=== PATIENT | female | born 1930 | race Asian ===

== ENCOUNTER 2018-02-11 13:34 | Emergency (ER) | payer MEDICARE, BC ==
--- NOTE | 2018-02-11 16:03 | RAD ---
INDICATION: Altered mental status COMPARISON: None. TECHNIQUE: Contiguous axial sections of the brain were obtained from the skull base to the vertex without contrast. FINDINGS: The ventricles, cisterns and sulci mild symmetric involutional changes. There is ayqy-lz-[id number] periventricular and subcortical white matter hypoattenuation, most consistent with chronic microvascular disease. Otherwise the gonzales-white matter differentiation is adequately maintained and there is no sulcal effacement. No significant focal abnormality or mass effect is present. There is no evidence for intracranial hemorrhage. No significant focal osseous abnormality is present. The visualized portion of the paranasal sinuses appear clear. The mastoid air cells are well aerated bilaterally. IMPRESSION: Appearance of chronic microvascular disease without CT apparent acute intracranial abnormality.
--- NOTE | 2018-02-11 16:09 | RAD ---
INDICATION: Altered mental status and hypoxia COMPARISON: None TECHNIQUE: PA and lateral views of the chest were obtained. FINDINGS: The heart and mediastinum are normal in size and contour. There is coarse calcification overlying the arch of the aorta. The lungs are grossly clear. There is no evidence of large pleural effusion. Visualized bones are normal for the patient's age. There is no radiographic evidence of free air beneath the diaphragm IMPRESSION: No radiographic evidence of acute cardiopulmonary disease.
[2018-02-11 16:26] LABS: ABS Basophils 0 10^3/ul (0-0.2); ABS Eosinophils 0.1 10^3/ul (0-0.6); ABS Lymphocytes 1.5 10^3/ul (1.0-4.8); ABS Monocytes 0.5 10^3/ul (0-0.8); ABS Neutrophils 5.4 10^3/ul (1.5-7.7); ABS Nucleated RBC 0 10^3/ul; Eosinophil % 1.3 % (0-6); Hematocrit 39 % (35-47); Hemoglobin 13.2 g/dl (12.0-16.0); Mean Corpuscular HGB Conc 34 g/dl (31-36); Mean Corpuscular Hemoglobin 32 pg (27-31); Mean Corpuscular Volume 94 fL (80-97); Mean Platelet Volume 9 um3 (7.4-10.4); Nucleated Red Blood Cells % 0; Platelet Count 238 10^3/ul (150-450); Red Blood Count 4.12 10^6/ul (4.0-5.4); Red Cell Distribution Width 13 % (10.5-15); White Blood Count 7.6 10^3/ul (3.5-10.8)
[2018-02-11 16:39] LABS: INR 0.87 (0.77-1.02)
[2018-02-11 17:44] LABS: Urine Appearance Clear; Urine Blood Negative (Negative); Urine Color Yellow; Urine Ketones Negative (Negative); Urine Protein Negative (Negative); Urine Specific Gravity 1.013 (1.010-1.030); Urine Urobilinogen Negative (Negative)
--- NOTE | 2018-02-11 18:49 | ED ---
Leroy Isaacs Tiffany, scribed for Freedom Dominique MD on 02/11/18 at 1514 . Complex/Multi-Sys Presentation - HPI Summary HPI Summary: The patient is an 87 year old F referred from Urgent Care [facility] accompanied by son and iikmfiij-qk-okk c/o sun downing episode last night. Symptoms aggravated by nothing. Symptoms alleviated by nothing. Reports lack of sleep. Denies pain, bloody stool. Per son and zofkdafo-ev-iql, patient has been having livid nightmares since her 2 weeks ago. She realizes that these dreams are fake. Began Amoxicillin yesterday afternoon s/p teeth extraction. Woke up last night at 03:00 with nightmare of people wanting to hurt her. Has had recent symptoms of URI. Has hx of dementia. Son and daughter- in-law are concerned that infection is making the dementia worse. - History Of Current Complaint Chief Complaint: EDGeneral Time Seen by Provider: 02/11/18 14:52 Hx Obtained From: Patient, Family/Financial Aid Administrator - Son and hkxlxwog-am-pyq Onset/Duration: Lasting Weeks - nightmares lasting 2 weeks, recent symptoms of URI, Still Present Aggravating Factor(s): Nothing Alleviating Factor(s): Nothing Associated Signs And Symptoms: Positive: Other - lack of sleep, recent symptoms of URI; NEGATIVE: pain, bloody stool - Allergies/Home Medications Allergies/Adverse Reactions: Allergies Allergy/AdvReac Type Severity Reaction Status Date / Time No Known Allergies Allergy Verified 02/11/18 13:40 PMH/Surg Hx/FS Hx/Imm Hx Previously Healthy: No Endocrine/Hematology History: Reports: Hx Diabetes - Type II Cardiovascular History: Reports: Hx Hypertension Neurological History: Reports: Hx Dementia, Other Neuro Impairments/Disorders - Alzheimer's - Surgical History Surgery Procedure, Year, and Place: None Infectious Disease History: No Infectious Disease History: Denies: Traveled Outside the [place] in Last 30 Days - Family History Known Family History: Positive: Other - Denies knowledge of relevant family history - Social History Lives: With Family Alcohol Use: None Hx Substance Use: No Substance Use Type: Reports: None Hx Tobacco Use: No Smoking Status (MU): Never Smoked Tobacco Review of Systems Positive: Other - Recent URI symptoms Gastrointestinal: Negative - Bloody stools Musculoskeletal: Negative - Pain Positive: Other - Sundowning episodes, livid nightmares for the past 2 weeks, lack of sleep All Other Systems Reviewed And Are Negative: Yes Physical Exam - Summary Physical Exam Summary: General: well-appearing, no pain distress Skin: warm, color reflects adequate perfusion, dry Head: normal Eyes: EOMI, JOSS ENT: normal Neck: supple, nontender Respiratory: CTA, breath sounds present Cardiovascular: RRR Abdomen: soft, nontender Bowel: present Musculoskeletal: normal, strength/ROM intact Neurological: normal, sensory/motor intact, A&O x3 Psychological: affect/mood appropriate Triage Information Reviewed: Yes Vital Signs On Initial Exam: Initial Vitals Temp Pulse Resp BP Pulse Ox 97.3 F 70 14 146/58 95 02/11/18 13:40 02/11/18 13:40 02/11/18 13:40 02/11/18 13:40 02/11/18 13:40 Vital Signs Reviewed: Yes Diagnostics - Vital Signs Vital Signs Temp Pulse Resp BP Pulse Ox 02/11/18 15:00 69 16 142/60 91 02/11/18 14:37 72 15 154/70 93 02/11/18 14:36 75 0 97 02/11/18 13:40 97.3 F 70 14 146/58 95 - Laboratory Lab Results: Lab Results 02/11/18 02/11/18 02/11/18 Range/Units 16:11 16:11 16:11 WBC (3.5-10.8) 10^3/ul RBC (4.0-5.4) 10^6/ul Hgb (12.0-16.0) g/dl Hct (35-47) % MCV (80-97) fL MCH (27-31) pg MCHC (31-36) g/dl RDW (10.5-15) % Plt Count (150-450) 10^3/ul MPV (7.4-10.4) um3 Neut % (Auto) (38-83) % Lymph % (Auto) (25-47) % [place] % (Auto) (0-7) % Eos % (Auto) (0-6) % Baso % (Auto) (0-2) % Absolute Neuts (auto) (1.5-7.7) 10^3/ul Absolute Lymphs (auto) (1.0-4.8) 10^3/ul Absolute Monos (auto) (0-0.8) 10^3/ul Absolute Eos (auto) (0-0.6) 10^3/ul Absolute Basos (auto) (0-0.2) 10^3/ul Absolute Nucleated RBC 10^3/ul Nucleated RBC % INR (Anticoag Therapy) 0.87 (0.77-1.02) APTT 38.1 H (26.0-36.3) seconds D-Dimer, Quantitative < 200 (Less Than 230) ng/mL Sodium 134 (133-145) mmol/L Potassium 4.2 (3.5-5.0) mmol/L Chloride 95 L (101-111) mmol/L Carbon Dioxide 31 (22-32) mmol/L Anion Gap 8 (2-11) mmol/L BUN 28 H (6-24) mg/dL Creatinine 0.85 (0.51-0.95) mg/dL Est GFR ( Amer) 81.0 (>60) Est GFR (Non-Af Amer) 63.0 (>60) BUN/Creatinine Ratio 32.9 H (8-20) Glucose 112 H (70-100) mg/dL Lactic Acid (0.5-2.0) mmol/L Calcium 9.9 (8.6-10.3) mg/dL Magnesium 2.1 (1.9-2.7) mg/dL Total Bilirubin 0.30 (0.2-1.0) mg/dL AST 25 (13-39) U/L ALT 12 (7-52) U/L Alkaline Phosphatase 52 (34-104) U/L Ammonia 32 (16-53) mol/L Total Creatine Kinase 94 (10-223) U/L CK-MB (CK-2) 4.1 (0.6-6.3) ng/mL Troponin I 0.01 (<0.04) ng/mL C-Reactive Protein 2.72 (< 5.00) mg/L B-Natriuretic Peptide 58 ( - 100) pg/mL Total Protein 7.2 (6.4-8.9) g/dL Albumin 3.9 (3.2-5.2) g/dL Globulin 3.3 (2-4) g/dL Albumin/Globulin Ratio 1.2 (1-3) Lipase 78 (11.0-82.0) U/L TSH 2.28 (0.34-5.60) mcIU/mL Urine Color Urine Appearance Urine pH (5-9) Ur Specific [place] (1.010-1.030) Urine Protein (Negative) Urine Ketones (Negative) Urine Blood (Negative) Urine Nitrate (Negative) Urine Bilirubin (Negative) Urine Urobilinogen (Negative) Ur Leukocyte Esterase (Negative) Urine Glucose (Negative) Urine Ascorbic Acid (Negative) Salicylates < 2.50 (<30) mg/dL Urine Opiates Screen (None Detect) Acetaminophen < 15 mcg/mL Ur Barbiturates Screen (None Detect) Ur Phencyclidine Scrn (None Detect) Ur Amphetamines Screen (None Detect) U Benzodiazepines Scrn (None Detect) Urine Cocaine Screen (None Detect) U Cannabinoids Screen (None Detect) Serum Alcohol < 10 (<10) mg/dL 02/11/18 02/11/18 02/11/18 Range/Units 16:11 16:11 17:32 WBC 7.6 (3.5-10.8) 10^3/ul RBC 4.12 (4.0-5.4) 10^6/ul Hgb 13.2 (12.0-16.0) g/dl Hct 39 (35-47) % MCV 94 (80-97) fL MCH 32 H (27-31) pg MCHC 34 (31-36) g/dl RDW 13 (10.5-15) % Plt Count 238 (150-450) 10^3/ul MPV 9 (7.4-10.4) um3 Neut % (Auto) 71.4 (38-83) % Lymph % (Auto) 20.0 L (25-47) % Def[place] % (Auto) 6.9 (0-7) % Eos % (Auto) 1.3 (0-6) % Baso % (Auto) 0.4 (0-2) % Absolute Neuts (auto) 5.4 (1.5-7.7) 10^3/ul Absolute Lymphs (auto) 1.5 (1.0-4.8) 10^3/ul Absolute Monos (auto) 0.5 (0-0.8) 10^3/ul Absolute Eos (auto) 0.1 (0-0.6) 10^3/ul Absolute Basos (auto) 0 (0-0.2) 10^3/ul Absolute Nucleated RBC 0 10^3/ul Nucleated RBC % 0 INR (Anticoag Therapy) (0.77-1.02) APTT (26.0-36.3) seconds D-Dimer, Quantitative (Less Than 230) ng/mL Sodium (133-145) mmol/L Potassium (3.5-5.0) mmol/L Chloride (101-111) mmol/L Carbon Dioxide (22-32) mmol/L Anion Gap (2-11) mmol/L BUN (6-24) mg/dL Creatinine (0.51-0.95) mg/dL Est GFR ( Amer) (>60) Est GFR (Non-Af Amer) (>60) BUN/Creatinine Ratio (8-20) Glucose (70-100) mg/dL Lactic Acid 1.1 (0.5-2.0) mmol/L Calcium (8.6-10.3) mg/dL Magnesium (1.9-2.7) mg/dL Total Bilirubin (0.2-1.0) mg/dL AST (13-39) U/L ALT (7-52) U/L Alkaline Phosphatase (34-104) U/L Ammonia (16-53) mol/L Total Creatine Kinase (10-223) U/L CK-MB (CK-2) (0.6-6.3) ng/mL Troponin I (<0.04) ng/mL C-Reactive Protein (< 5.00) mg/L B-Natriuretic Peptide ( - 100) pg/mL Total Protein (6.4-8.9) g/dL Albumin (3.2-5.2) g/dL Globulin (2-4) g/dL Albumin/Globulin Ratio (1-3) Lipase (11.0-82.0) U/L TSH (0.34-5.60) mcIU/mL Urine Color Urine Appearance Urine pH (5-9) Ur Specific [place] (1.010-1.030) Urine Protein (Negative) Urine Ketones (Negative) Urine Blood (Negative) Urine Nitrate (Negative) Urine Bilirubin (Negative) Urine Urobilinogen (Negative) Ur Leukocyte Esterase (Negative) Urine Glucose (Negative) Urine Ascorbic Acid (Negative) Salicylates (<30) mg/dL Urine Opiates Screen None detected (None Detect) Acetaminophen mcg/mL Ur Barbiturates Screen None detected (None Detect) Ur Phencyclidine Scrn None detected (None Detect) Ur Amphetamines Screen None detected (None Detect) U Benzodiazepines Scrn None detected (None Detect) Urine Cocaine Screen None detected (None Detect) U Cannabinoids Screen None detected (None Detect) Serum Alcohol (<10) mg/dL 02/11/18 Range/Units 17:32 WBC (3.5-10.8) 10^3/ul RBC (4.0-5.4) 10^6/ul Hgb (12.0-16.0) g/dl Hct (35-47) % MCV (80-97) fL MCH (27-31) pg MCHC (31-36) g/dl RDW (10.5-15) % Plt Count (150-450) 10^3/ul MPV (7.4-10.4) um3 Neut % (Auto) (38-83) % Lymph % (Auto) (25-47) % [place] % (Auto) (0-7) % Eos % (Auto) (0-6) % Baso % (Auto) (0-2) % Absolute Neuts (auto) (1.5-7.7) 10^3/ul Absolute Lymphs (auto) (1.0-4.8) 10^3/ul Absolute Monos (auto) (0-0.8) 10^3/ul Absolute Eos (auto) (0-0.6) 10^3/ul Absolute Basos (auto) (0-0.2) 10^3/ul Absolute Nucleated RBC 10^3/ul Nucleated RBC % INR (Anticoag Therapy) (0.77-1.02) APTT (26.0-36.3) seconds D-Dimer, Quantitative (Less Than 230) ng/mL Sodium (133-145) mmol/L Potassium (3.5-5.0) mmol/L Chloride (101-111) mmol/L Carbon Dioxide (22-32) mmol/L Anion Gap (2-11) mmol/L BUN (6-24) mg/dL Creatinine (0.51-0.95) mg/dL Est GFR ( Amer) (>60) Est GFR (Non-Af Amer) (>60) BUN/Creatinine Ratio (8-20) Glucose (70-100) mg/dL Lactic Acid (0.5-2.0) mmol/L Calcium (8.6-10.3) mg/dL Magnesium (1.9-2.7) mg/dL Total Bilirubin (0.2-1.0) mg/dL AST (13-39) U/L ALT (7-52) U/L Alkaline Phosphatase (34-104) U/L Ammonia (16-53) mol/L Total Creatine Kinase (10-223) U/L CK-MB (CK-2) (0.6-6.3) ng/mL Troponin I (<0.04) ng/mL C-Reactive Protein (< 5.00) mg/L B-Natriuretic Peptide ( - 100) pg/mL Total Protein (6.4-8.9) g/dL Albumin (3.2-5.2) g/dL Globulin (2-4) g/dL Albumin/Globulin Ratio (1-3) Lipase (11.0-82.0) U/L TSH (0.34-5.60) mcIU/mL Urine Color Yellow Urine Appearance Clear Urine pH 7.0 (5-9) Ur Specific [place] 1.013 (1.010-1.030) Urine Protein Negative (Negative) Urine Ketones Negative (Negative) Urine Blood Negative (Negative) Urine Nitrate Negative (Negative) Urine Bilirubin Negative (Negative) Urine Urobilinogen Negative (Negative) Ur Leukocyte Esterase Negative (Negative) Urine Glucose Negative (Negative) Urine Ascorbic Acid * A (Negative) Salicylates (<30) mg/dL Urine Opiates Screen (None Detect) Acetaminophen mcg/mL Ur Barbiturates Screen (None Detect) Ur Phencyclidine Scrn (None Detect) Ur Amphetamines Screen (None Detect) U Benzodiazepines Scrn (None Detect) Urine Cocaine Screen (None Detect) U Cannabinoids Screen (None Detect) Serum Alcohol (<10) mg/dL Result Diagrams: 02/11/18 16:11 02/11/18 16:11 Lab Statement: Any lab studies that have been ordered have been reviewed, and results considered in the medical decision making process. - Radiology CXR Radiology Interpretation Completed By: Radiologist - No radiographic evidence of acute cardiopulmonary disease. ED physician has reviewed this report. - CT Brain CT Interpretation Completed By: Radiologist - Appearance of chronic microvascular disease without CT apparent acute intracranial abnormality. ED physician has reviewed this report. Re-Evaluation - Re-Evaluation First Eval Re-Evaluation Time: 18:01 Change: Improved Comment: Discussed discharge plan with patient and family. They are agreeable to discharge. Complex Multi-Symp Course/Dx Course Of Treatment: BP noted and advised to follow up with PCP. Medications reviewed. O2 LEVEL VARIED FROM 83% TO 98% ON ROOM AIR WHICH MAKE TRUE HYPOXIA UNLIKELY. HALLUCINATIONS INTERMITTENT IN ED. WHEN PATIENT PLACED ON O2, THE HALLUCINATIONS CONTINUED. DISCUSSED WITH DR CASANOVA WHO OFFERED ADMISSION. THE PATIENT AND FAMILY DECLINED ADMISSION; THEY WILL F/U WITH PMD. THEY MAY TRY BENADRYL AT PM TO HELP WITH SLEEP. RETURN IF WORSE. - Diagnoses Provider Diagnoses: Hallucinations Discharge - Discharge Plan Condition: Stable Disposition: HOME Patient Education Materials: Hallucinations (ED) Referrals: [facility]ICIAN REFERRAL [Outside] Additional Instructions: FOLLOW UP WITH YOUR DOCTOR. RETURN TO THE EMERGENCY DEPARTMENT FOR ANY WORSENING OF YOUR CONDITION OR QUESTIONS OR CONCERNS. The documentation as recorded by the Leroy early Tiffany accurately reflects the service I personally performed and the decisions made by me, Freedom Dominique MD.
[2018-02-11 19:12] VITALS: BP 126/99
== END 2018-02-11 19:10 | disposition home or self-care (01) ==
LOC: ED 13:34
DX: R44.3 Hallucinations, unspecified (principal); R41.82 Altered mental status, unspecified; F05 Delirium due to known physiological condition; E11.9 Type 2 diabetes mellitus without complications; I10 Essential (primary) hypertension; G30.9 Alzheimer's disease, unspecified; F02.80 Dementia in other diseases classified elsewhere, unspecified severity, without behavioral disturbance, psychotic disturbance, mood disturbance, and anxiety
CPT/HCPCS: 36415; 70450; 71046; 80053; 80171; 80307; 80320; 80329; 81003; 82140; 82550; 82553; 83605; 83690; 83735; 83880; 84443; 84484; 85025; 85379; 85610; 85730; 86140; 99283; G0480

== ENCOUNTER 2018-03-07 09:34 | Emergency (ER) | payer MEDICARE, BC ==
--- NOTE | 2018-03-07 10:48 | RAD ---
INDICATION: Altered mental status. COMPARISON: Comparison is made with a prior chest x-ray study from February 11, 2018. TECHNIQUE: A portable view of the chest was obtained. FINDINGS: Cardiac and mediastinal contours appear to be within normal limits. The lungs are clear. No pleural effusion is seen. IMPRESSION: NO EVIDENCE FOR ACUTE DISEASE.
[2018-03-07 11:03] LABS: ABS Basophils 0 10^3/ul (0-0.2); ABS Eosinophils 0.1 10^3/ul (0-0.6); ABS Lymphocytes 1.4 10^3/ul (1.0-4.8); ABS Monocytes 0.4 10^3/ul (0-0.8); ABS Neutrophils 4.6 10^3/ul (1.5-7.7); ABS Nucleated RBC 0 10^3/ul; Hematocrit 39 % (35-47); Hemoglobin 13.2 g/dl (12.0-16.0); Mean Corpuscular HGB Conc 34 g/dl (31-36); Mean Corpuscular Hemoglobin 32 pg (27-31); Mean Corpuscular Volume 95 fL (80-97); Mean Platelet Volume 8.5 um3 (7.4-10.4); Nucleated Red Blood Cells % 0; Platelet Count 194 10^3/ul (150-450); Red Blood Count 4.16 10^6/ul (4.0-5.4); Red Cell Distribution Width 13 % (10.5-15); White Blood Count 6.6 10^3/ul (3.5-10.8)
--- NOTE | 2018-03-07 11:23 | RAD ---
HISTORY: Altered mental status COMPARISONS: February 11, 2013 TECHNIQUE: Multiple contiguous axial CT scans were obtained of the head without intravenous contrast. FINDINGS: HEMORRHAGE/INFARCT: There is no hemorrhage or acute infarct. MASSES/SHIFT: There is no mass or shift. EXTRA-AXIAL SPACES: There are no extra-axial fluid collections. SULCI AND VENTRICLES: The sulci and ventricles are normal in size and position for the patient's stated age. CEREBRUM: There is hypoattenuation of the periventricular and subcortical white matter. BRAINSTEM: There are no focal parenchymal abnormalities. CEREBELLUM: There are no focal parenchymal abnormalities. VESSELS: There is calcification of the cavernous segments of the internal carotid arteries bilaterally. PARANASAL SINUSES: The paranasal sinuses are clear. ORBITS: The orbits are unremarkable. BONES AND SOFT TISSUE: No bone or soft tissue abnormalities are noted. OTHER: None IMPRESSION: NO ACUTE INTRACRANIAL PATHOLOGY. CHRONIC SMALL VESSEL ISCHEMIC CHANGE.
[2018-03-07 11:30] LABS: EGFR Non-African American 55.4 (>60)
[2018-03-07 11:43] LABS: Urine Appearance Clear; Urine Blood Negative (Negative); Urine Color Yellow; Urine Ketones Negative (Negative); Urine Protein Negative (Negative); Urine Specific Gravity 1.013 (1.010-1.030); Urine Urobilinogen Negative (Negative)
[2018-03-07 12:54] VITALS: BP 140/65
--- NOTE | 2018-03-09 10:56 | ED ---
Rufus Isaacs Angela, scribed for Francis Tracey MD on 03/07/18 at 1039 . Head Injury - HPI Summary HPI Summary: This pt is a 87 y/o female, accompanied by her daughter and son in law, presenting to [facility] for auditory and visual hallucinations since 2 days ago. Daughter reports the pt fell 2 days ago after she lost her balance and struck the posterior aspect of her head. No LOC. Daughter describes the pt has reported seeing a lot of kids and people in the house that are not there. Pt also wakes up and tries to tierney them away. Last night pt saw an old lady in her room and family member states the pt was chasing this old lady. Per daughter , pt sleep talks a lot as well. Daughter notes the pt had similar episodes of hallucinations 1 month ago when the pt had a tooth infection and abscess. Son reports the dentist thinks it was a cross reaction between amoxicillin and gabapentin. Pt has been taking gabapentin for 3 years now. Pt recently moved to [place] 5 weeks ago after recent of pt's . Per daughter, pt has a lot of stress due to his new move. Daughter states pt has been very agitated recently as well. She has upcoming surgery tomorrow for cataracts with Dr. Olvera. Pt has hx of dementia. - History Of Current Complaint Chief Complaint: EDHeadInjury Stated Complaint: HALLUCINATIONS Time Seen by Provider: 03/07/18 10:12 Hx Obtained From: Family/Rn Neonatal Icu - Daughter and son in law Mechanism Of Injury: Blunt Trauma Onset/Duration: Started Days Ago, Still Present Severity Currently: None Pain Intensity: 0 Pain Scale Used: 0-10 Numeric Location of Head Injury: Occipital Aggravating Factor(s): Other: - nothing Alleviating Factor(s): Other: - nothing Associated Signs And Symptoms: Other: - auditory and visual hallucinations - Allergies/Home Medications Allergies/Adverse Reactions: Allergies Allergy/AdvReac Type Severity Reaction Status Date / Time No Known Allergies Allergy Verified 03/07/18 09:46 Home Medications: Home Medications Ciprofloxacin 0.3% OPTH.GHISLAINE* [Cipro 0.3% Opth*] 1 drop LEFT EYE TID 03/07/18 [ History Confirmed 03/07/18] DULoxetine DR OLVERA* [Cymbalta CAP*] 30 mg PO BID 03/07/18 [History Confirmed 09/14] Ketorolac 0.5% OPHTH (NF) 1 drop LEFT EYE TID 03/07/18 [History Confirmed ] metFORMIN* [Glucophage 500 MG TAB *] 500 mg PO BID 03/07/18 [History Confirmed 03/07/18] prednisoLONE 1% OPHTH.SUSP* [Pred Forte 1%*] 1 drop LEFT EYE TID 03/07/18 [ History Confirmed 03/07/18] PMH/Surg Hx/FS Hx/Imm Hx Endocrine/Hematology History: Reports: Hx Diabetes - Type II Cardiovascular History: Reports: Hx Hypertension Neurological History: Reports: Hx Dementia, Other Neuro Impairments/Disorders - Alzheimer's - Surgical History Surgery Procedure, Year, and Place: None Infectious Disease History: No Infectious Disease History: Denies: Traveled Outside the [place] in Last 30 Days - Family History Known Family History: Positive: Other - Denies knowledge of relevant family history - Social History Alcohol Use: None Hx Substance Use: No Substance Use Type: Reports: None Hx Tobacco Use: No Smoking Status (MU): Never Smoked Tobacco Review of Systems Negative: Fever, Chills Negative: Chest Pain Negative: Shortness Of Breath Neurological: Other - dementia Psychological: Other - auditory and visual hallucinations. All Other Systems Reviewed And Are Negative: Yes Physical Exam - Summary Physical Exam Summary: VITAL SIGNS: Reviewed. GENERAL: Patient is an elderly and fragile female who is lying comfortable in the stretcher. Patient is not in any acute respiratory distress. HEAD AND FACE: No signs of trauma. No ecchymosis, hematomas or skull depressions. No sinus tenderness. EYES: PERRLA, EOMI x 2, No injected conjunctiva, no nystagmus. EARS: Hearing grossly intact. Ear canals and tympanic membranes are within normal limits. MOUTH: Oropharynx within normal limits. NECK: Supple, trachea is midline, no adenopathy, no JVD, no carotid bruit, no c- spine tenderness, neck with full ROM. CHEST: Symmetric, no tenderness at palpation LUNGS: Clear to auscultation bilaterally. No wheezing or crackles. CVS: Regular rate and rhythm, S1 and S2 present, no murmurs or gallops appreciated. ABDOMEN: Soft, non-tender. No signs of distention. No rebound no guarding, and no masses palpated. Bowel sounds are normal. EXTREMITIES: FROM in all major joints, no edema, no cyanosis or clubbing. NEURO: Alert and oriented x 2. No acute neurological deficits. Speech is normal and follows commands. SKIN: Dry and warm GCS: 15 Triage Information Reviewed: Yes Vital Signs On Initial Exam: Initial Vitals Temp Pulse Resp BP Pulse Ox 97.6 F 66 16 134/61 98 03/07/18 09:46 03/07/18 09:46 03/07/18 09:46 03/07/18 09:46 03/07/18 09:46 Vital Signs Reviewed: Yes Diagnostics - Vital Signs Vital Signs Temp Pulse Resp BP Pulse Ox 03/07/18 10:20 74 22 146/66 94 03/07/18 09:46 97.6 F 66 16 134/61 98 - Laboratory Result Diagrams: 03/07/18 10:50 03/07/18 10:50 Lab Statement: Any lab studies that have been ordered have been reviewed, and results considered in the medical decision making process. - Radiology Chest XR Xray Interpretation: No Acute Changes - IMPRESSION: No evidence for acute disease. Dr. Tracey has reviewed this radiology report. Radiology Interpretation Completed By: Radiologist - CT Brain CT CT Interpretation: No Acute Changes - IMPRESSION: No acute intracranial pathology. Chronic small vessel ischemic change. Dr. Tracey has reviewed this radiology report. CT Interpretation Completed By: Radiologist - EKG 10:46 Cardiac Rate: NL EKG Rhythm: Sinus Rhythm - at 68 bpm EKG Interpretation: No ST elevations. Q waves in III and aVF. Re-Evaluation - Re-Evaluation First Eval Re-Evaluation Time: 12:28 Comment: I reviewed the lab, XR, and CT results with the family members. Pt will be discharged home. Head Injury Course/Dx Assessment/Plan: This pt is a 87 y/o female, accompanied by her daughter and son in law, presenting to [facility] for auditory and visual hallucinations since 2 days ago. Daughter reports the pt fell 2 days ago after she lost her balance and struck the posterior aspect of her head. No LOC. Per daughter, pt sleep talks a lot as well. Daughter notes the pt had similar episodes of hallucinations 1 month ago when the pt had a tooth infection and abscess. Son reports the dentist thinks it was a cross reaction between amoxicillin and gabapentin. Pt has been taking gabapentin for 3 years now. Pt recently moved to [place] 5 weeks ago after recent of pt's . Per daughter, pt has a lot of stress due to his new move. Daughter states pt has been very agitated recently as well. Test results without any significant abnormalities except glucose of 125. Urine toxicology is negative. Chest XR: No evidence for acute disease. Brain CT: No acute intracranial pathology. Chronic small vessel ischemic change. Therefore she will be discharged to home with follow up from her PCP. I discussed all the findings and test results with the family members. All questions were answered to their satisfaction. There were no further complaints or concerns. Family members were instructed to return to the ED for any worsening or new symptoms of pt. Pt is hemodynamically stable, alert and oriented x2, at her baseline. - Diagnoses Provider Diagnoses: Hallucinations Discharge - Sign-Out/Discharge Documenting (check all that apply): Discharge - discharge to home - Discharge Plan Condition: Stable Disposition: HOME Patient Education Materials: Hallucinations (ED) Referrals: [facility] [place] [facility] REFERRAL [Outside] - 3 Days No Primary Care Phys,NOPCP [Primary Care Provider] - Additional Instructions: Please follow up with your primary care provider. RETURN TO THE ED FOR ANY NEW OR WORSENING SYMPTOMS. The documentation as recorded by the Rufus early Angela accurately reflects the service I personally performed and the decisions made by me, Francis Tracey MD.
== END 2018-03-07 12:53 | disposition home or self-care (01) ==
LOC: ED 09:34
DX: R44.3 Hallucinations, unspecified (principal); E11.8 Type 2 diabetes mellitus with unspecified complications; Z79.84 Long term (current) use of oral hypoglycemic drugs; I10 Essential (primary) hypertension; G30.9 Alzheimer's disease, unspecified; F02.80 Dementia in other diseases classified elsewhere, unspecified severity, without behavioral disturbance, psychotic disturbance, mood disturbance, and anxiety
CPT/HCPCS: 36415; 70450; 71045; 80053; 80307; 80320; 80329; 81003; 81015; 82140; 82550; 83605; 84443; 84484; 85025; 87086; 93005; 99283; G0480

== ENCOUNTER 2018-03-15 12:11 | Day surgery (SDC) | payer MEDICARE, BC ==
[~2018-03-15 12:11] MED LIST: Acetaminophen TAB* 325 MG PO PRN; Buffered Lidocaine 0.9% SYRIN* 5 ML/SYR SYRINGE INTRADERM ONE; Cyclopentolate 1% OPTH.SOL* 2 ML BTL ONE; Ketorolac 0.5% OPHTH (NF) 0.5 % 5 ML BTL ONE; Lidocaine 2% EPI 1:200000 MPF*10-20 ML VIAL ONE; Neomycin/Polymy/Dex OPTH.SUSP* MAXITROL 0.1% 5 ML ONE; Phenylephrine 2.5% OPTH.SOL* 2 ML BTL ONE; Povidone Iodine 5% OPTH* 30 ML BTL ONE; Proparacaine 0.5% OPHTH.SOL* 15 ML BTL ONE; acetaZOLAMIDE TAB* 250 MG ONE
[2018-03-15] MEDS ORDERED: Midazolam* 1 MG/ML 2 ML VIAL (2 MG) ONE (14:49)
[2018-03-15 15:35] VITALS: BP 127/53
--- NOTE | 2018-03-15 22:26 | OP ---
DATE OF OPERATION: 03/15/2018 - [facility] DATE OF : 1930 SURGEON: Sid Olvera MD. PREOPERATIVE DIAGNOSIS: Cataract, left eye. POSTOPERATIVE DIAGNOSIS: Cataract, left eye. OPERATIVE PROCEDURE: Extracapsular cataract extraction with IOL, left eye. DESCRIPTION OF PROCEDURE: The patient was brought to the operating room after being given 1/2% Alcaine with epinephrine drops in the preoperative area. The eye was prepped and draped in the usual sterile fashion. Sterile drape and eyelid speculum were placed. Again, topical 1/2% Alcaine with epinephrine was given. A paracentesis incision was made at the 3 o'clock position with the No.75 blade. Clear cornea incision 2.2 x 2.2-mm was created at the 6 o'clock position starting at the anterior limbus using the 2.2-mm keratome. The anterior chamber was irrigated with 0.4 mL of 1% non-preservative intracameral lidocaine and filled with DisCoVisc. A capsulorrhexis was completed using the cystotome and the Utrata forceps. Hydrodissection was performed with balanced salt solution. The lens nucleus was removed with the Phacoemulsification handpiece without incident. Cortex was removed with the irrigation-aspiration handpiece. The capsular bag was re-inflated using DisCoVisc and an SN6AT5 21.5 diopter implant inserted with a shooter and oriented to the 5-degree meridian. The horizontal reference coffey were made with the patient in a seated position in the preoperative area. The irrigation- aspiration handpiece was used to remove all residual DisCoVisc. The eye was refilled with balanced salt solution and the wound checked and found to be watertight. Topical Maxitrol drops were given. The pupil was very small, so a Malyugin ring was used to dilate the pupil and removed after insertion of the lens. Indication for complex cataract surgery: Pupil abnormality requiring eye dilation device. [id number]/[facility] #: [id number] MTDD
== END 2018-03-15 15:31 | disposition home or self-care (01) ==
LOC: OREAST 12:11
PROVIDERS: ATTEND Specialist
DX: H25.812 Combined forms of age-related cataract, left eye (principal); H21.562 Pupillary abnormality, left eye; E11.40 Type 2 diabetes mellitus with diabetic neuropathy, unspecified; Z79.84 Long term (current) use of oral hypoglycemic drugs; I10 Essential (primary) hypertension; F03.90 Unspecified dementia, unspecified severity, without behavioral disturbance, psychotic disturbance, mood disturbance, and anxiety; M10.9 Gout, unspecified
CPT/HCPCS: A9270-GY; J2250; V2787

== ENCOUNTER 2018-03-22 08:36 | Day surgery (SDC) | payer MEDICARE, BC ==
[~2018-03-22 08:36] MED LIST changes: +Lidocaine 1% MPF* 2 ML VIAL ONE
[2018-03-22] MEDS ORDERED: Lidocaine 2% PF * 5 ML VIAL ONE (10:32)
[2018-03-22] MEDS ORDERED: Propofol* 10 MG/ML 20 ML BTL IV PUSH ONE (10:32)
[2018-03-22] MEDS ORDERED: fentaNYL* 50 MCG/ML 2 ML VIAL (100 MCG VIAL) ONE (10:32)
[2018-03-22 11:57] VITALS: BP 140/69
--- NOTE | 2018-03-22 13:15 | OP ---
OPERATIVE NOTE: DATE OF OPERATION: 03/22/18 DATE OF : [birth year] SURGEON: Sid Olvera MD PREOPERATIVE DIAGNOSIS: Cataract, right eye. POSTOPERATIVE DIAGNOSIS: Cataract, right eye. OPERATIVE PROCEDURE: Extracapsular cataract extraction with IOL, right eye. PROCEDURE: The patient was brought to the operating room after being given 1/2% Alcaine with epineph rine drops in the preoperative area. The eye was prepped and draped in the usual sterile fashion. S terile drape and eyelid speculum were placed. Again, topical 1/2% Alcaine with epinephrine was given . A paracentesis incision was made at the 9 o'clock position with the No.75 blade. Clear cornea inc ision 2.2 x 2.2-mm was created at the 12 o'clock position starting at the anterior limbus using the 2 .2-mm keratome. The anterior chamber was irrigated with 0.4 mL of 1% non-preservative intracameral l idocaine and filled with DisCoVisc. A capsulorrhexis was completed using the cystotome and the Utrat a forceps. Hydrodissection was performed with balanced salt solution. The lens nucleus was removed w ith the Phacoemulsification handpiece without incident. Cortex was removed with the irrigation-aspir ation handpiece. The capsular bag was re-inflated using DisCoVisc and an SN6AT5 20.5 diopter implant inserted with a shooter and oriented to the 175-degree meridian. Horizontal reference coffey were ma de with the patient in a seated position in the preoperative area. Pupil was very small, so a Malyug in ring was used to dilate the pupil prior to capsulorrhexis and removed after insertion of the lens and confirmation of the correct lens position. The irrigation-aspiration handpiece was used to remov e all residual DisCoVisc. The eye was refilled with balanced salt solution and the wound checked and found to be watertight. Topical Maxitrol drops were given. Indication for a complex cataract surgery: Iris abnormalities requiring pupillary dilation device. [id number]/[facility] #: [id number]
== END 2018-03-22 11:46 | disposition home or self-care (01) ==
LOC: OREAST 08:36
PROVIDERS: ATTEND Specialist
DX: H25.811 Combined forms of age-related cataract, right eye (principal); Q13.2 Other congenital malformations of iris; E11.9 Type 2 diabetes mellitus without complications; Z79.84 Long term (current) use of oral hypoglycemic drugs; I10 Essential (primary) hypertension; M10.9 Gout, unspecified
CPT/HCPCS: A9270-GY; J2704; J3010; V2787